=== PATIENT | male | born 1970 | race African-American/Black ===

== ENCOUNTER → 2018-03-25 | Outpatient (CLI) | payer OTHER ==
[~2018-03-25] MED LIST: LEVEMIR SQ; LISINOPRIL40 MG PO; NORCO 5-325 TA1 EACH PO; NOVOLOG100 UNIT/1 SQ; PENICILLIN VK500 MG PO; PROTONIX40 M2; PROTONIX40 M2 PO; ZOCOR 20 MG TAB20 M1 PO; [UNRECOGNIZED DRUG - SUPPLY]
== END ==
LOC: ULTRA 10:02
DX: R31.9 Hematuria, unspecified (principal); R10.9 Unspecified abdominal pain